=== PATIENT | female | born 1945 | race Caucasian/White ===

== ENCOUNTER → 2017-12-22 | Outpatient (CLI) | payer MEDICARE ==
[~2017-12-22] MED LIST: ASPI81TA23 PO; CALCTAB33 PO; COQ150CA PO; FERR28TA PO; NEXI40CA PO; OCUVTAB4 PO; SYMB160A INH; VITA2000 PO; ZANT150T2 PO
[2017-12-22 10:18] LABS: AUTOMATED NEUTROPHIL # 2.4 TH/MM3 (1.8-7.7); BASOPHIL # 0.1 TH/MM3 (0-0.2); BASOPHIL % 1.2 % (0.0-2.0); EOSINOPHIL # 0.1 TH/MM3 (0-0.4); EOSINOPHIL % 1.7 % (0.0-4.0); HEMATOCRIT 44.6 % (35.0-46.0); LYMPHOCYTE # 1.2 TH/MM3 (1.0-4.8); MEAN CELL VOLUME 95.8 FL (80.0-100.0); MEAN CORPUSCULAR HEMOGLOBIN 32.1 PG (27.0-34.0); MEAN CORPUSCULAR HGB CONC 33.5 % (32.0-36.0); MEAN PLATELET VOLUME 9.1 FL (7.0-11.0); MONO % 11.3 % (0.0-8.0); MONOCYTE # 0.5 TH/MM3 (0-0.9); NEUT % 56.8 % (16.0-70.0); PLATELET COUNT 198 TH/MM3 (150-450); RED BLOOD COUNT 4.66 MIL/MM3 (4.00-5.30); RED CELL DISTRIBUTION WIDTH 14.2 % (11.6-17.2); WHITE BLOOD COUNT 4.3 TH/MM3 (4.0-11.0)
[2017-12-22 11:02] LABS: BICARBONATE 30.3 MEQ/L (21.0-32.0); CALCIUM 8.8 MG/DL (8.5-10.1); CREATININE 0.86 MG/DL (0.50-1.00)
[2017-12-22 11:16] LABS: BILIRUBIN, URINE NEG (NEG); BLOOD, URINE NEG (NEG); GLUCOSE,URINE NEG (NEG); KETONE, URINE NEG (NEG); NITRITE,URINE NEG (NEG); PH, URINE 6.5 (5.0-8.5); URINE COLOR LIGHT-YELLOW (YELLW/STRAW); URINE LEUKOCYTE ESTERASE NEG (NEG)
--- NOTE | 2017-12-22 11:42 | RADRPT ---
EXAM DATE: 12/22/2017 11:21 AM EDT AGE/SEX: 72 years / Female INDICATIONS: Evaluate for pneumonia, pneumothorax, or any communicable disease. Pre op right knee. CLINICAL DATA: This is the patient's initial encounter. Patient reports that signs and symptoms have been present for 1 day and indicates a pain score of 0/10. MEDICAL/SURGICAL HISTORY: None. None. COMPARISON: [facility], XR CHEST PA AND LAT, 10/24/2016. . FINDINGS: PA and lateral views of the chest demonstrate the lungs to be symmetrically aerated without evidence of mass, infiltrate or effusion. The cardiomediastinal contours are unremarkable. Osseous structures are intact. CONCLUSION: Negative examination. Electronically signed by: Jeramy Jauregui MD 12/22/2017 11:41 AM EDT
--- NOTE | 2017-12-22 12:06 | EKG ---
Date Performed: 12/22/2017 Time Performed: 09:16:22 PTAGE: 72 years EKG: Sinus rhythm NORMAL ECG NO PREVIOUS TRACING DOCTOR: Lele Wolff Interpretating Date/Time 12/22/2017 12:05:47
== END ==
LOC: CPRE 08:41
PROVIDERS: ATTEND Orthopaedic Surgery
DX: Z01.810 Encounter for preprocedural cardiovascular examination (principal); M17.11 Unilateral primary osteoarthritis, right knee; Z01.812 Encounter for preprocedural laboratory examination; Z01.818 Encounter for other preprocedural examination
CPT/HCPCS: 36415; 71046; 80048; 81001; 85025; 85610; 93005

== ENCOUNTER 2018-01-07 07:37 | Inpatient (IN) | payer MEDICARE ==
--- NOTE | 2017-12-24 12:57 | MH ---
cc: Moises Booth MD DATE OF ADMISSION: 01/07/2018 DIAGNOSIS: Osteoarthritis, right knee. HISTORY OF PRESENT ILLNESS: This is a 72-year-old white female with a lengthy history of right knee pain dating back to approximately 2012, when the patient became symptomatic with pain secondary to exercise activity, when she was performing jumping jacks and sustained a stress injury to her right knee. She did undergo medical evaluation at that time and x-ray studies were without evidence of any acute bony abnormality. The patient was treated conservatively, which included use of a knee immobilizer and pain medication and, thereafter, continued to conform to conservative management, doing reasonably well with regards to resuming routine activities of daily living. She returned to the office in April 2017, indicating that for the previous year, she had been having generalized discomfort about her right knee for which she had been taking Tylenol for pain management and wearing an elastic knee support, neither of which were affording her any appreciable benefit. Her x-ray studies were without evidence of any acute bony abnormality, with some minimal hypertrophic reaction along the lateral joint line of the tibial plateau. The patient was treated with an intraarticular steroid injection and continued to be followed on an outpatient basis. She returned to the office again in July of this year, indicating that there was lingering soreness about her right knee, with some numb sensation generalized about her right lower extremity. The patient was referred for neurology evaluation at that time and apparently no significant abnormality was identified. She returned to the office again in October, describing ongoing pain about her right knee for which recommendation was made to proceed with an MRI scan. 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 When seen in followup disposition, the findings of her MRI scan were reviewed and treatment options discussed. The pros and cons of continuing with conservative management versus operative intervention that would involve arthroscopic surgery as opposed to total knee arthroplasty were outlined in detail. The pluses and minuses of each surgical procedure were reviewed. Emphasis was made regarding the fact that the decision to proceed with any operative treatment would be left entirely to the patient's discretion. The patient herself readily admitted that she was inclined to proceed with total knee arthroplasty as treatment of choice, which she would anticipate as providing her with a more favorable long-term benefit. In compliance with her wishes, she was scheduled for admission at this time in order that the above be accomplished. It should also be noted that she did undergo a rather thorough course of physical therapy prior to proceeding with her operative treatment. PAST HISTORY, HOSPITALIZATIONS AND SURGERIES: Have included bilateral bunionectomy, bilateral hammertoe surgery, bilateral cataract excision, arthroscopic surgery of the left knee x 2, colonoscopy and medical management for syncope with a complete cardiac evaluation being unremarkable. The patient's medical illnesses include acid reflux for which she takes Zantac 150 mg twice daily. ALLERGIES: SHE HAS A DRUG ALLERGY TO SULFA, WHICH HAS BEEN ASSOCIATED WITH SWELLING. REVIEW OF SYSTEMS: She does wear glasses for reading purposes. Denies headache, seizure. There is a single episode of syncope. Auditory acuity intact. Positive history of tinnitus. No bleeding gums or dysphagia. Denies cough, shortness of breath, upper respiratory infection. There is a positive history of pneumonia. No tuberculosis. No angina or heart disease. Her appetite is good. Bowel movements are regular. No hepatitis, gallbladder disease, ulcers or hemorrhoids. No urinary tract infection, no kidney stones. No history of fractures. No psychiatric illness. Her remaining review of systems is unremarkable and noncontributory. FAMILY HISTORY: 31 years. is 66 years of age, in good health. One son and 1 daughter indicated to be in good health. FAMILY HISTORY: Positive for lung cancer and COPD. SOCIAL HISTORY: The patient completed a high school education. 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 She denies active use of tobacco. Ethanol consumption on a limited and social basis. PHYSICAL EXAMINATION: VITAL SIGNS: Height 5 feet 4 inches, weight 155 pounds. GENERAL: This is an alert, oriented and responsive 72-year-old white female who sits quietly upon the examination table with no obvious distress. HEAD, EARS, EYES, NOSE AND THROAT: Pupils are equally round and reactive to light. Extraocular movements full. Sclerae are clear. External nares clear. External auditory canals clear. Dental intact. Mucous membranes pink and moist. Pharynx clear. NECK: Supple. Active range of motion, without appreciable pain. Carotid pulse is palpable bilaterally. Trachea midline. Thyroid without thyroid enlargement. LUNGS: Clear to auscultation and percussion. No CVA tenderness. No discomfort throughout the dorsolumbar spine. HEART: Regular rhythm. No murmur or gallop. ABDOMEN: Soft, nontender, bowel sounds present. PELVIC: Per primary care physician. EXTREMITIES: Right knee, no significant swelling or effusion. There is generalized tenderness anteriorly involving both medial and lateral joint lines, without palpable deformity. Apprehension and compression sign negative. Limited mobility in the 110 degree range of flexion, with obvious crepitation elicited. No collateral ligamentous instability. Geoff test and drawer sign negative. Pivot shift and Clifton sign positive for generalized knee pain. Straight leg raising unremarkable at 80 degrees. Satisfactory mobility of the right hip, with no associated pain. Independent gait. NEUROLOGIC: Cranial nerves 2-12 grossly intact. IMPRESSION: Osteoarthritis, right knee. PLAN: Right total knee arthroplasty. The nature of the planned surgical procedure, the potential complications and risks associated, the expectations of surgery and the consent form were thoroughly reviewed with the patient in the presence of her prior to admission to the hospital. Scarlett has indicated her full understanding regarding all of the above and given consent to proceed with treatment as outlined. Medical evaluation and clearance for surgery completed by her primary care physician, Dr. Rain Barton. MD MEGHAN Schreiber/SRI , 04:50 PM , 05:24 PM
[~2018-01-07] VITALS: Ht 162.6 cm; Wt 70.2 kg
[~2018-01-07 07:37] MED LIST changes: -NEXI40CA PO; -SYMB160A INH
[2018-01-07] MEDS ORDERED: POVIDONE IODINE 7.5% SCRUB 118 ML BOTTLE TOPICAL SCH (08:00)
[2018-01-07] MEDS ORDERED: CHLORHEXIDINE GLUCONATE 2 % 1 PACK (2 CLOTHS) TOPICAL PRN (08:00)
[2018-01-07] MEDS ORDERED: METOPROLOL TARTRATE 25 MG TAB PO PRN (08:00)
[2018-01-07] MEDS ORDERED: SODIUM CHLORID 0.9% 500 ML IV PRN (08:00)
[2018-01-07] MEDS ORDERED: ceFAZolin 2 GM PREMIX 50 ML IV SCH (08:00)
[2018-01-07] MEDS ORDERED: TRANEXAMIC ACID 1 GM PRIOR TO PROCEDURE IV SCH ×2 (08:00)
[2018-01-07] MEDS ORDERED: POVIDONE IODINE 5% (ANTISEPSIS KIT) 4 APPLICATIONS EACH NARE PRN (08:00)
[2018-01-07] MEDS ORDERED: LACTATED RINGER'S 1000 ML IV PRN (08:00)
[2018-01-07 08:34] VITALS: PULSE 66
[2018-01-07] MEDS ORDERED: ROPIVACAINE PERI-ARTICULAR INJECTION. P-ARTICULR SCH ×5 (08:45)
[2018-01-07] MEDS ORDERED: MIDAZOLAM HCL 5 MG/5 ML VIAL ONE (08:59)
[2018-01-07] MEDS ORDERED: FAMOTIDINE 20 MG/2 ML VIAL ONE (09:15)
[2018-01-07] MEDS ORDERED: ACETAMINOPHEN 1000 MG/100 ML 100 ML IV ONE (09:15)
[2018-01-07] MEDS ORDERED: ceFAZolin INJ 1,000 MG VIAL ONE (09:15)
[2018-01-07] MEDS ORDERED: BUPIVACAINE HCL PF 0.5% 30 ML VIAL ONE (09:22)
[2018-01-07] MEDS ORDERED: TRANEXAMIC ACID 1 GM POST-OP IV SCH ×2 (11:00)
--- NOTE | 2018-01-07 11:57 | HHI.FF ---
Face to Face Verification Diagnosis: (1) DJD (degenerative joint disease) of knee Physical Therapy Gait training Knee: Total knee, Protocol: Right, Full weight bearing Right LE Weight Bearing: WB as tolerated Right LE Range of Motion: Active ROM Nursing Dressing Changes: Daily dressing change I have seen patient Scarlett Schuster on 01/07/18. My clinical findings support the need for the requested home health care services because: Limited ability to care for self High risk of falls I certify that my clinical findings support that this patient is homebound because: Post-op weakness Unsteady gait/balance Unsafe to leave home unassisted Moises Booth MD Jan 07, 2018 11:57
[2018-01-07] MEDS ORDERED: DOCUSATE SODIUM 100 MG CAP PO PRN (12:00)
[2018-01-07] MEDS ORDERED: PROPOFOL 200 MG/20 ML AMP IV ONE (12:00)
[2018-01-07] MEDS ORDERED: ROCURONIUM INJ 50 MG/5 ML SYRINGE IV PUSH ONE (12:00)
[2018-01-07] MEDS ORDERED: ceFAZolin INJ 1,000 MG VIAL IV ONE (12:00)
[2018-01-07] MEDS ORDERED: DO NOT ADM ANY ANTICOAGULANT DRUGS PRN (12:00)
[2018-01-07] MEDS ORDERED: GLYCOPYRROLATE 1 MG/5 ML SYRINGE IV PUSH ONE (12:00)
[2018-01-07] MEDS ORDERED: diphenhydrAMINE HCL 25 MG CAP PO PRN (12:00)
[2018-01-07] MEDS ORDERED: NALOXONE HCL 0.4 MG/ML AMP IV PUSH PRN (12:00)
[2018-01-07] MEDS ORDERED: DEXAMETHASONE SOD PHOS 4 MG/ML VIAL IV ONE (12:00)
[2018-01-07] MEDS ORDERED: ACETAMINOPHEN 325 MG TAB PO PRN (12:00)
[2018-01-07] MEDS ORDERED: ePHEDrine/NS 25 MG/5 ML SYRINGE IV ONE (12:00)
[2018-01-07] MEDS ORDERED: LIDOCAINE HCL 1% PF 5 ML SYRINGE OTHER ONE (12:00)
[2018-01-07] MEDS ORDERED: MORPHINE SULFATE 30 MG/30 ML PCA IV SCH (12:00)
[2018-01-07] MEDS ORDERED: NEOSTIGMINE 5 MG/5 ML SYRINGE IV PUSH ONE (12:00)
[2018-01-07] MEDS ORDERED: LACTATED RINGER'S 1000 ML INJ 1,000 ML IV ONE (12:00)
[2018-01-07] MEDS ORDERED: PHARMACY INFORMATION XX ONE (12:00)
[2018-01-07] MEDS ORDERED: TRANEXAMIC ACID INJ 1,000 MG in SODIUM CHLORIDE 0.9% INJ 100 ML IV SCH (12:00)
[2018-01-07] MEDS ORDERED: Post-op Orders (for Pharmacy) XX ONE (12:00)
[2018-01-07] MEDS ORDERED: ONDANSETRON HCL 4 MG/2 ML VIAL IV PUSH ONE (12:00)
[2018-01-07] MEDS ORDERED: *morphine SULFATE 4 MG/ML PERIprocedure ONLY ONE ×2 (12:04→12:19)
[2018-01-07] MEDS: DEXT 5%-NACL 0.45% 1000 ML INJ 1,000 ML IV SCH ×2 (12:18→21:16)
--- NOTE | 2018-01-07 12:27 | MP ---
cc: Moises Booth MD DATE OF OPERATION: PREOPERATIVE DIAGNOSIS: Osteoarthritis, right knee. POSTOPERATIVE DIAGNOSIS: Osteoarthritis, right knee. PROCEDURE PERFORMED: Right total knee arthroplasty. SURGEON: Moises Booth MD ANESTHESIA: General endotracheal. INDICATIONS: This is a 72-year-old white female with a lengthy history of right knee pain extending back to at least 2012 when she became symptomatic secondary to exercise activity performing jumping jacks and stressed her right knee. She did undergo evaluation at that time with x-ray studies being unremarkable for any acute bony abnormality. She was treated conservatively which included wearing a knee immobilizer and pain medication being utilized while continuing to conform to conservative management. Over the following couple of years, she seemed to be doing reasonably well with regard to activities of daily living until returning to the office in April of this past year, indicating that she was having a progressive pain about her right knee for which she has been taking Tylenol for pain management and wearing an elastic knee support, neither of which were affording her any appreciable benefit. Her x-ray studies were without evidence of any acute bony abnormality. There was some minimal hypertrophic reaction along the lateral joint line of the tibial plateau. The patient received an intraarticular steroid injection and continued to conform to conservative management. She again returned to the office in July of this year, indicating there was lingering soreness about her right knee with a numb sensation. She was referred for neurology evaluation and apparently no significant abnormality was identified. A subsequent MRI scan of her right knee reported osteoarthritic findings involving the lateral compartment associated with bony edema and articular cartilage thinning as well as a horizontal tear involving the body and posterior horn of the lateral meniscus and associated Mix's cyst. Findings and treatment options were reviewed with the patient at that time. The pros and cons of continuing with conservative management versus operative intervention that would involve arthroscopic surgery versus total knee arthroplasty being outlined. The pluses and minuses of each surgical procedure were reviewed with emphasis being made that the decision to proceed with surgery would be left entirely to the patient's discretion. The patient readily admitted that she was inclined to proceed with surgery, leaning towards a total knee arthroplasty as being the treatment of choice for more long-term benefit and expressed her desire to proceed accordingly. In compliance with her wishes, she was scheduled for admission at this time in order that the above be accomplished. FORMAT: Following the induction of satisfactory general anesthesia by endotracheal intubation as completed per the Department of Anesthesia, a tourniquet was established around the proximal portion of the right lower extremity. The extremity proper was isolated with a U-drape, thereafter being prepped with Betadine solution and draped into a sterile field in the routine manner. Prior to initiation of the actual procedure, the standard timeout protocol was completed. All parameters were appropriately addressed and confirmed by operating room personnel. The extremity was elevated for approximately 1 minute and the tourniquet, thus inflated to 250 mmHg pressure. A sharp skin incision was initiated midline over the anterior aspect of the knee and developed through underlying subcutaneous tissue with hemostasis maintained. By deepening dissection, the anterior capsule was exposed, the medial capsulotomy completed and the patella subluxed in a lateral orientation. Examination of the joint space revealed significant degenerative changes, primarily localized to the lateral compartment where there was complete erosion of the articular cartilage from both femoral condyle and tibial plateau with underlying subchondral bone exposed, secondary degenerative changes throughout the patellofemoral articulation. The articular surface of the patella was resected with power saw. The 3 holed guide was utilized for establishing post-holes. Medial and lateral meniscus structures as well as the anterior cruciate ligament were sharply excised. Centering hole was placed in the distal aspect of the femur, allowing positioning of the intramedullary guide. The distal femoral cutting jig was attached and the distal femur resected. AP measurement noted 65 mm sizing to be appropriate. The matching cutting block was positioned. Anterior, posterior and chamfer cuts were completed. The tibial plateau was thereafter subluxed in an anterior orientation allowing positioning of the extramedullary guide. The tibial plateau was resected and measured with 71 mm sizing determined to be satisfactory. A trial reduction followed utilizing a 65 mm anatomic femoral component, a 71 mm tibial base with a 10 mm bearing insert. The knee readily reduced and was carried through a passive range of motion with stability being noted at both 0 and 90 degrees flexed posture. Orientation was confirmed as appropriate with measurement of the pelvic guide through the mechanical access of the knee. A trial reduction followed utilizing a 31 standard 3 post-patellar button. Once again good tracking noted with no tendency toward subluxation. All trial components being removed, the remaining portion of the proximal tibia was prepared for insertion of the permanent component. The joint space was thoroughly lavaged with pulsating antibiotic solution. An autogenous bone plug was inserted into the distal femoral guide hole and thereafter a preparation of Palacos bone cement was utilized in inserting knee components in a sequential fashion, which included a 71 mm fixed cruciate tibial base to which, a 10 mm Vanguard tibial bearing insert was secured with locking ramirez. The 65 mm Vanguard femoral component was firmly seated onto the distal femur, excess cement being removed, the knee was brought to full extension and thereafter, the 31 mm standard 3 post-patellar button was attached and maintained in place with patellar clamp while cement hardening was completed. Final range of motion assessment noted good tracking stability throughout the knee. Irrigation was repeated with hemostasis maintained. Autovac drain tubes were inserted through superior stab wounds. The capsule was repaired with 0 Vicryl suture. The remaining portion of the wound was closed in layers in the routine manner with skin margins being reapproximated with a running subcuticular 3-0 Vicryl suture over which Steri-Strips were applied. Xeroform gauze and a bulky dry sterile dressing placed. Tourniquet had been deflated after 37 minutes of tourniquet time. The extremity being supported in a canvas knee splint. Anesthesia was discontinued. She was thereafter transferred to a hospital bed and returned to the recovery room in satisfactory condition, having tolerated her operative procedure well. Estimated blood loss was approximately 50 mL as determined per anesthesia. All implants were of the [employer] general superintendent. Moises Booth MD NBS/TL , 11:47 AM , 12:26 PM
--- NOTE | 2018-01-07 13:03 | RADRPT ---
EXAM DATE: 01/07/2018 12:55 PM EDT AGE/SEX: 72 years / Female INDICATIONS: Post op right knee. CLINICAL DATA: This is the patient's initial encounter. Patient reports that signs and symptoms have been present for 1 day and indicates a pain score of Nonresponsive. MEDICAL/SURGICAL HISTORY: None. None. COMPARISON: No prior exams available for comparison. FINDINGS: Status post right knee replacement. There is good position alignment of the bony structures and right knee prosthesis. Postsurgical changes are noted. CONCLUSION: Good position and alignment on this postoperative study. Electronically signed by: Jaxson Luque MD 01/07/2018 1:01 PM EDT
[2018-01-07] MEDS ORDERED: POLYETHYLENE GLYCOL 17 GM PKG PO PRN (14:45)
[2018-01-07] MEDS ORDERED: cloNIDine HCL 0.1 MG TAB PO PRN (14:45)
--- NOTE | 2018-01-07 14:46 | PD.CONS ---
[facility] By Dr. [facility] Reason for Consult Medical management Primary Care Physician Rain Barton D.O. Diagnoses: History of Present Illness The patient is a 72-year-old female with past medical history of arthritis who is presenting to the hospital for elective right knee replacement. The patient says she has had right knee problems for the past 10 years. She has also had left knee pain that started before the right knee pain started, however, that pain is tolerable at this time. The patient has been taking Advil daily for pain control. She has been ambulating without a walker or a cane. She is able to climb up and down stairs. She says she believes she also has arthritis in her thumbs and in her toes. She tolerated the procedure well. She is hoping to go home with home health care in the next few days. She says she takes MiraLAX at home on a regular basis. She denies any major medical problems at this time. Review of Systems Except as stated in HPI: all other systems reviewed are Neg Past Family Social History Allergies: Coded Allergies: Sulfa (Sulfonamide Antibiotics) (Verified Allergy, Severe, Swelling, ) Past Medical History Osteoarthritis GERD Hammertoes Plantar fasciitis Past Surgical History Arthroscopy to the left knee 2 Toe surgery Bilateral bunionectomy Cataract surgery Family History COPD Lung cancer Social History The patient does not smoke. She has rare alcohol intake. Physical Exam Vital Signs Vital Signs Date Time Temp Pulse Resp B/P (MAP) Pulse Ox O2 Delivery O2 Flow Rate FiO2 01/07/18 14:00 68 20 125/63 (83) 97 Nasal Cannula 2 01/07/18 13:00 63 14 136/63 (87) 97 Nasal Cannula 2 01/07/18 12:45 84 18 178/72 (107) 99 Nasal Cannula 2 01/07/18 12:30 79 17 150/72 (98) 96 Nasal Cannula 2 01/07/18 12:15 78 18 151/70 (97) 99 Nasal Cannula 2 01/07/18 12:00 86 14 165/73 (103) 99 Nasal Cannula 2 01/07/18 11:45 105 19 152/77 (102) 100 Nasal Cannula 2 01/07/18 11:43 97.5 106 12 156/72 (100) 100 Simple Mask 6 01/07/18 08:34 66 6/20/18 08:34 97 Nasal Cannula 2 01/07/18 08:30 98.2 70 16 147/76 (99) 96 Physical Exam GENERAL: This is a well-nourished, well-developed patient, in no apparent distress. SKIN: No rashes, ecchymoses or lesions. Cool and dry. HEAD: Atraumatic. Normocephalic. No temporal or scalp tenderness. EYES: Pupils equal round and reactive. Extraocular motions intact. No scleral icterus. No injection or drainage. ENT: Nose without bleeding, purulent drainage or septal hematoma. Throat without erythema, tonsillar hypertrophy or exudate. Uvula midline. Airway patent. NECK: Trachea midline. No JVD or lymphadenopathy. Supple, nontender, no meningeal signs. CARDIOVASCULAR: Regular rate and rhythm without murmurs, gallops, or rubs. RESPIRATORY: Clear to auscultation. Breath sounds equal bilaterally. No wheezes , rales, or rhonchi. GASTROINTESTINAL: Abdomen soft, non-tender, nondistended. No hepato-splenomegaly , or palpable masses. No guarding. MUSCULOSKELETAL: Right leg in mobilizer. No LLE edema. + pedal pulses. NEUROLOGICAL: Awake and alert. Cranial nerves II through XII intact. Motor and sensory grossly within normal limits. Five out of 5 muscle strength in all muscle groups. Normal speech. Imaging Last Impressions Knee X-Ray 01/07/18 1152 Signed Impressions: CONCLUSION: Good position and alignment on this postoperative study. Assessment and Plan Assessment and Plan Osteoarthritis Status post right knee replacement 01/07/2018. - Wound care, weightbearing and anticoagulation per surgery. - Incentive spirometry. - Physical therapy. - follow CBC. - pain control. HTN S/t surgery. - monitor. - clonidine as needed. GERD The patient is on Zantac as an outpatient. - Resume Zantac. Constipation The pt takes MiraLAX as an outpt. - bowel regimen with MiraLAX as needed. PPx: Per surgery Discussed Condition With Pt, pt's family, nurse Vincent Johnson DO Jan 07, 2018 14:46
[2018-01-07] MEDS: ONDANSETRON ODT 4 MG TAB PO PRN ×2 (15:21→18:49)
[2018-01-07 20:00] VITALS: BP 145/70; PULSE 70; RESP 16; TEMP 97.8; O2SAT 98
[2018-01-07] MEDS ORDERED: ZOLPIDEM TARTRATE 5 MG TAB PO PRN (21:00)
[2018-01-07] MEDS: PCA - TOTAL MG MORPHINE DELIVERED PER SHIFT SCH (21:14)
[2018-01-07] MEDS: FAMOTIDINE 20 MG TAB PO SCH (21:19)
[2018-01-07] MEDS: DOCUSATE SODIUM 100 MG CAP PO SCH (21:19)
[2018-01-08 00:01] VITALS: BP 129/62; PULSE 75; RESP 17; TEMP 97.9; O2SAT 97
[2018-01-08 04:00] VITALS: BP 135/69; PULSE 71; RESP 18; TEMP 98.2; O2SAT 97
[2018-01-08] MEDS: PCA - TOTAL MG MORPHINE DELIVERED PER SHIFT SCH ×3 (05:49→21:30)
[2018-01-08] MEDS: ACETAMINOPHEN/HYDROcodone 325 MG/5 MG TAB PO PRN ×4 (05:50→21:30)
[2018-01-08] MEDS: DEXT 5%-NACL 0.45% 1000 ML INJ 1,000 ML IV SCH ×3 (06:00→22:00)
[2018-01-08] MEDS ORDERED: HYDR-3516 PO (06:19)
[2018-01-08] MEDS ORDERED: ASPI-183 PO (06:20)
[2018-01-08] MEDS ORDERED: WALKER WHEELS/F1 MIS (06:22)
[2018-01-08 07:27] LABS: HEMATOCRIT 37.1 % (35.0-46.0); HEMOGLOBIN 12.4 GM/DL (11.6-15.3); MEAN CELL VOLUME 95.5 FL (80.0-100.0); MEAN CORPUSCULAR HEMOGLOBIN 31.9 PG (27.0-34.0); MEAN CORPUSCULAR HGB CONC 33.4 % (32.0-36.0); MEAN PLATELET VOLUME 8.8 FL (7.0-11.0); PLATELET COUNT 184 TH/MM3 (150-450); RED BLOOD COUNT 3.89 MIL/MM3 (4.00-5.30); RED CELL DISTRIBUTION WIDTH 13.6 % (11.6-17.2); WHITE BLOOD COUNT 8.5 TH/MM3 (4.0-11.0)
[2018-01-08] MEDS: DOCUSATE SODIUM 100 MG CAP PO SCH ×2 (09:53→21:29)
[2018-01-08] MEDS: FAMOTIDINE 20 MG TAB PO SCH ×2 (09:53→21:29)
--- NOTE | 2018-01-08 10:13 | HHI.PR ---
Subjective Remarks Doing okay. Overall pain control. No other concerns at this time. Objective Vitals Vital Signs Date Time Temp Pulse Resp B/P (MAP) Pulse Ox O2 Delivery O2 Flow Rate FiO2 01/08/18 05:49 18 01/08/18 04:00 98.2 71 18 135/69 (91) 97 01/08/18 00:01 97.9 75 17 129/62 (84) 97 01/07/18 21:14 18 01/07/18 20:00 97.8 70 16 145/70 (95) 98 01/07/18 17:00 97.8 79 15 133/67 (89) 96 Nasal Cannula 2 01/07/18 16:13 76 24 138/63 (88) 95 Nasal Cannula 2 01/07/18 15:00 61 14 146/67 (93) 98 Nasal Cannula 2 01/07/18 14:00 68 20 125/63 (83) 97 Nasal Cannula 2 01/07/18 13:00 63 14 136/63 (87) 97 Nasal Cannula 2 01/07/18 12:45 84 18 178/72 (107) 99 Nasal Cannula 2 01/07/18 12:30 79 17 150/72 (98) 96 Nasal Cannula 2 01/07/18 12:18 17 01/07/18 12:15 78 18 151/70 (97) 99 Nasal Cannula 2 01/07/18 12:00 86 14 165/73 (103) 99 Nasal Cannula 2 01/07/18 11:45 105 19 152/77 (102) 100 Nasal Cannula 2 01/07/18 11:43 97.5 106 12 156/72 (100) 100 Simple Mask 6 I/O 01/07/18 01/07/18 01/07/18 01/08/18 01/08/18 01/08/18 06:59 14:59 22:59 06:59 14:59 22:59 Intake Total 1960 ml 901 ml Output Total 50 ml 135 ml 70 ml Balance 1910 ml 766 ml -70 ml Intake Oral 240 ml IV Total 160 ml 661 ml Other 1800 ml Output Drainage Total 135 ml 70 ml Estimated Blood Loss 50 ml # Voids 0 4 Result Diagram: 01/08/18 0655 Objective Remarks GENERAL: This is a well-nourished, well-developed patient, in no apparent distress. CARDIOVASCULAR: Regular rate and rhythm RESPIRATORY: Clear to auscultation. Breath sounds equal bilaterally. No wheezes , rales, or rhonchi. MUSCULOSKELETAL: Right knee bandage clean dry intact NEURO: Alert & Oriented x4 to person, place, time, situation. Moves all ext x4 A/P Assessment and Plan Status post op day #1 right knee replacement -continue postoperative care, pain control, physical therapy per orthopedic surgery Dr. campos Elevated blood pressure post surgery likely due to pain. Currently blood pressure better controlled at this time will continue to monitor. Clonidine as needed. GERD The patient is on Zantac as an outpatient. - Resume Zantac. Constipation The pt takes MiraLAX as an outpt. - bowel regimen with MiraLAX as needed. DVT prophylaxis Xarelto Discharge Planning Home with home health care when cleared by orthopedic surgery Apurva Brooks MD Jan 08, 2018 10:13
[2018-01-08] MEDS: RIVAROXABAN 10 MG TAB PO SCH (11:35)
[2018-01-08 12:00] VITALS: BP 125/60; PULSE 77; RESP 18; TEMP 97.4; O2SAT 97
[2018-01-08 16:23] VITALS: BP 136/64; PULSE 77; RESP 18; TEMP 98.8; O2SAT 96
[2018-01-08 19:59] VITALS: BP 140/66; PULSE 71; RESP 17; TEMP 99.3; O2SAT 97
[2018-01-09 00:01] VITALS: BP 149/60; PULSE 72; RESP 18; TEMP 98.7; O2SAT 97
[2018-01-09] MEDS: ACETAMINOPHEN/HYDROcodone 325 MG/5 MG TAB PO PRN ×2 (02:45→06:47)
[2018-01-09] MEDS: DEXT 5%-NACL 0.45% 1000 ML INJ 1,000 ML IV SCH (06:00)
[2018-01-09] MEDS: PCA - TOTAL MG MORPHINE DELIVERED PER SHIFT SCH (06:00)
--- NOTE | 2018-01-09 06:46 | MD ---
cc: Moises Booth MDRain FLORES DATE OF DISCHARGE: 01/09/2018 ADMITTING DIAGNOSES: Osteoarthritis, right knee. DISCHARGE DIAGNOSIS: Osteoarthritis, right knee. HISTORY: A 72-year-old white female with a lengthy history of right knee pain extending back to at least 2012 when she became symptomatic with pain secondary to exercise activity. HOSPITAL COURSE: She was performing jumping jacks and sustained a stress injury to her right knee for which she did undergo medical evaluation with x-ray studies being without evidence of any acute bony abnormality. The patient was treated conservatively, which included wearing a knee immobilizer and taking pain medication and continued to conform to conservative management, doing reasonably while resuming routine activities of daily living. She returned to the office in April 2017 indicating for the previous year she had been having generalized discomfort about her right knee for which she had been taking Tylenol for pain management and wearing an elastic knee support, neither of which affording her any appreciable benefit. Her x-ray studies were without evidence of any acute bony abnormality. There was some minimal hypertrophic reaction along the lateral joint line of the tibial plateau. The patient was treated with an intraarticular steroid injection and continue to be followed on an outpatient basis. She returned to the office in July of this year indicating that there was lingering soreness about her right knee with a numb sensation generalized about the right lower extremity. She was referred for neurology evaluation and apparently no significant abnormality was identified. She returned to the office in October describing ongoing pain about her right knee with a recommendation being made to proceed with an MRI scan. Subsequent diagnostic testing reported osteoarthritic involvement of the lateral compartment with bony edema and articular cartilage thinning and a horizontal tear involving the body and posterior horn of the lateral meniscus and approximately a 7 cm Mix's cyst. She was seen in followup disposition, at which time the findings of the scan were reviewed and treatment options discussed. The pros and cons of continuing with conservative management versus operative intervention that would involve arthroscopic surgery as opposed to total knee arthroplasty were outlined. The pluses and minuses of each surgical procedure were reviewed. Emphasis was made regarding the fact that the decision to proceed with any operative treatment would be left entirely to the patient's discretion. The patient readily admitted that she was inclined to proceed with total knee arthroplasty as being the treatment of choice anticipating that it would provide her with a more favorable long-term benefit. In compliance with her wishes, she was scheduled for admission at this time in order that the above be accomplished. PHYSICAL EXAM: Her physical examination at the time of admission revealed no significant swelling or effusion about the right knee. There was generalized tenderness anteriorly involving both medial and lateral joint lines without palpable deformity. Apprehension and compression sign negative. Limited mobility in the 110 degree range of flexion with obvious crepitation elicited. No collateral ligamentous instability. Geoff test and drawer sign negative. Pivot shift and Clifton sign positive. Straight leg raising unremarkable at 80 degrees. Satisfactory mobility of the right hip with no associated pain, independent gait. HOSPITAL COURSE: Prior to admission to the hospital, the patient had undergone medical evaluation and clearance for surgery as completed by her primary care physician, Dr. Rain Barton. She was taken to the operating room on 07 January 2018 and on that date underwent a right total knee arthroplasty completed in an uncomplicated manner. The patient was noted to have tolerated her operative procedure well. Her postoperative course, stable thereafter. Hemoglobin and hematocrit assessment postoperatively was 12.4 and 37.1 respectively. The patient was progressively mobilized under the guidance of physical therapy being permitted weightbearing to tolerance about the right lower extremity. Followup examination of her surgical wound was noted to be intact healing favorably with no evidence of infection. Medical followup per the hospitalist service. DVT prophylaxis initiated. Musical Instrument Maker consulted to assist with discharge planning. The patient had indicated her desire to be discharged home and continue her rehabilitation on an outpatient basis. Plans were finalized in this regard and pending medical clearance, she was scheduled for discharge on the second postoperative day, at which time she was noted to be making favorable progress with regard to her rehab program. She was scheduled to be seen in office followup in approximately 4 weeks. CONDITION ON DISCHARGE: Her condition at the time of discharge stable and prognosis favorable. DISCHARGE MEDICATIONS: Included hydrocodone 5/325, #40, aspirin 325 mg 1 tab twice daily for 3 weeks, #40. Moises Booth MD NBS/DL , 06:25 AM , 06:44 AM
[2018-01-09] MEDS: DOCUSATE SODIUM 100 MG CAP PO SCH (07:37)
[2018-01-09] MEDS: FAMOTIDINE 20 MG TAB PO SCH (07:37)
[2018-01-09 08:00] VITALS: BP 171/74; PULSE 70; RESP 18; TEMP 97.7; O2SAT 97
--- NOTE | 2018-01-09 09:23 | HHI.PR ---
Subjective Remarks No complaints. Doing okay. Ready to go home with home health care today Objective Vitals Vital Signs Date Time Temp Pulse Resp B/P (MAP) Pulse Ox O2 Delivery O2 Flow Rate FiO2 01/09/18 00:01 98.7 72 18 149/60 (89) 97 01/08/18 21:30 18 01/08/18 19:59 99.3 71 17 140/66 (90) 97 01/08/18 16:23 98.8 77 18 136/64 (88) 96 01/08/18 14:00 17 01/08/18 12:00 97.4 77 18 125/60 (81) 97 I/O 01/08/18 01/08/18 01/08/18 01/09/18 01/09/18 01/09/18 07:00 15:00 23:00 07:00 15:00 23:00 Intake Total 1200 ml Output Total 70 ml 120 ml 50 ml Balance -70 ml 1080 ml -50 ml Intake Oral 1200 ml Output Drainage Total 70 ml 120 ml 50 ml # Voids 4 5 4 # Bowel Movements 1 Result Diagram: 01/08/18 0655 Objective Remarks GENERAL: This is a well-nourished, well-developed patient, in no apparent distress. CARDIOVASCULAR: Regular rate and rhythm RESPIRATORY: Clear to auscultation. Breath sounds equal bilaterally. No wheezes , rales, or rhonchi. MUSCULOSKELETAL: Right knee bandage clean dry intact NEURO: Alert & Oriented x4 to person, place, time, situation. Moves all ext x4 A/P Assessment and Plan 1. Status post op day #2 right knee replacement -continue postoperative care, pain control, physical therapy per orthopedic surgery Dr. campos 2. Elevated blood pressure post surgery likely due to pain. Currently blood pressure better controlled at this time Clonidine as needed. 3. GERD The patient is on Zantac as an outpatient. - Resume Zantac. 4. Constipation The pt takes MiraLAX as an outpt. Positive bowel movement - bowel regimen with MiraLAX as needed. 5. DVT prophylaxis Xarelto Discharge Planning Discharge to home with home health care when cleared by orthopedic surgery today. Apurva Brooks MD Jan 09, 2018 09:23
[2018-01-09] MEDS: RIVAROXABAN 10 MG TAB PO SCH (10:21)
== END 2018-01-09 10:54 | disposition home health service (06) | DRG 470 ==
LOC: HSDI 07:37 → N06A 17:15
PROVIDERS: ADMIT Orthopaedic Surgery; ATTEND Orthopaedic Surgery
PROC: 0SRC0J9 Replacement of Right Knee Joint with Synthetic Substitute, Cemented, Open Approach (ICD-10-PCS; principal; 2018-01-07 09:41)
DX: M17.11 Unilateral primary osteoarthritis, right knee (principal); K21.9 Gastro-esophageal reflux disease without esophagitis; Z88.2 Allergy status to sulfonamides; M23.251 Derangement of posterior horn of lateral meniscus due to old tear or injury, right knee; M71.21 Synovial cyst of popliteal space [Baker], right knee; K59.00 Constipation, unspecified; R03.0 Elevated blood-pressure reading, without diagnosis of hypertension
CPT/HCPCS: 73560; 85027; 86850; 86900; 86901; 88305; 94150; C1776; J0131; J0690; J0735; J1100; J1885; J2250; J2270; J2405; J2710; J2795; J3010; J7120